=== PATIENT | female | born 1960 | race Two or more races ===

== ENCOUNTER 2018-04-11 21:47 | Emergency (ER) | payer OTHER ==
[2018-04-11 21:54] VITALS: BP 137/83; PULSE 81; RESP 16; TEMP 98.2; O2SAT 99
[2018-04-12 00:03] LABS: BASO % 0.6 % (0.0-2.0); EOS % 0.6 % (0.0-4.0); HEMOGLOBIN 11.8 g/dL (12.0-16.0); LYMPH # 1.2 K/uL (1.0-4.3); MEAN CELL VOLUME 86.8 fl (81.0-99.0); MEAN CORPUSCULAR HEMOGLOBIN 28.6 pg (27.0-31.0); MEAN CORPUSCULAR HGB CONC 32.9 g/dL (33.0-37.0); MEAN PLATELET VOLUME 8.2 fl (7.2-11.7); MONO # 0.4 K/uL (0.0-0.8); MONO % 5.1 % (0.0-10.0); NEUT # 5.3 K/uL (1.8-7.0); NEUT % 76.7 % (50.0-75.0); RBC 4.12 Mil/uL (3.80-5.20); RED CELL DISTRIBUTION WIDTH 13.4 % (11.5-14.5)
[2018-04-12 00:14] LABS: ALB/GLOB RATIO 1.5 (1.0-2.1); ALBUMIN 4.8 g/dL (3.5-5.0); ALT/SGPT 18 U/L (9-52); AST/SGOT 35 U/L (14-36); BLOOD UREA NITROGEN 11 mg/dl (7-17); CALCIUM 10.1 mg/dL (8.4-10.2); GFR NON-AFRICAN AMERICAN 42
[2018-04-12 00:24] LABS: BARBITURATES, UR NEGATIVE (NEGATIVE); BENZODIAZEPINES, UR NEGATIVE (NEGATIVE); OPIATES, UR NEGATIVE (NEGATIVE); PHENCYCLIDINE, UR NEGATIVE (NEGATIVE)
--- NOTE | 2018-04-12 00:25 | ED PDOC ---
HPI: Psych/Substance Abuse Time Seen by Provider: 04/11/18 21:57 Chief Complaint (Nursing): Psychiatric Evaluation Chief Complaint (Provider): Psychiatric Evaluation History Per: Patient, Family History/Exam Limitations: no limitations Associated Symptoms: denies: Suicidal Thoughts Additional Complaint(s): 57 y/o female was brought to the ED by her children for evaluation of psychosis. History was obtained from both patient and her family. Per family, patient has had a long history of psychosis. [place] last [place] and since then her psychiatric illness appears to have decompensated. Patient is no longer taking the same medications as with her [facility] psychiatrist. Family also reports they are concerned because patient is isolating herself more and in the past this was a sign of her psychosis getting worse. Today when family tried to visit her they had to force themselves into her home in order to check on the patient. They are also concerned that she overspending her allowance and they are not sure why. Per patient, she states she has had regular psychiatric care and was told that she was being over medicated. Patient reports she is now only diagnosed with mild anxiety and her prescriptions have changed to take only Celexa and is focusing more on general wellness. Patient states she was also started on medication for weight loss but however because it is not covered by insurance she has been spending money on that. Patient denies any homicidal or suicidal ideation as well as hallucinations. PMD [place] Past Medical History Reviewed: Historical Data, Nursing Documentation, Vital Signs Vital Signs: Last Vital Signs Temp 98.2 F 04/11/18 21:49 Pulse 81 04/11/18 21:49 Resp 16 04/11/18 21:49 BP 137/83 04/11/18 21:49 Pulse Ox 99 04/11/18 21:49 - Medical History PMH: No Chronic Diseases, Depression - Family History Family History: States: Unknown Family Hx - Social History Current smoker - smoking cessation education provided: No Alcohol: None Drugs: Denies - Allergies Allergies/Adverse Reactions: Allergies Allergy/AdvReac Type Severity Reaction Status Date / Time fluphenazine [From Prolixin] AdvReac FATIGUE Verified 04/11/18 21:54 Review of Systems ROS Statement: Except As Marked, All Systems Reviewed And Found Negative (as per HPI otherwise negative) Psych: Positive for: Anxiety, Psychosis. Negative for: Suicidal ideation Physical Exam - Reviewed Nursing Documentation Reviewed: Yes Vital Signs Reviewed: Yes - Physical Exam Appears: Positive for: No Acute Distress (but angry) Head Exam: Positive for: ATRAUMATIC, NORMOCEPHALIC Skin: Positive for: Warm, Dry Eye Exam: Positive for: EOMI, PERRL ENT: Negative for: Pharyngeal Erythema, Tonsillar Exudate Neck: Positive for: Painless ROM, Supple Cardiovascular/Chest: Positive for: Regular Rate, Rhythm. Negative for: Murmur Respiratory: Positive for: Normal Breath Sounds. Negative for: Respiratory Distress Gastrointestinal/Abdominal: Positive for: Soft. Negative for: Distended Back: Positive for: Normal Inspection. Negative for: Decreased ROM Extremity: Positive for: Normal ROM. Negative for: Deformity Lymphatic: Negative for: Adenopathy Neurologic/Psych: Positive for: Alert, Oriented (x3), Mood/Affect (angry). Negative for: Motor/Sensory Deficits - Laboratory Results Result Diagrams: 04/11/18 23:40 04/11/18 23:40 Lab Results: Total Bilirubin 0.7 mg/dl (0.2-1.3) 04/11/18 23:40 AST 35 U/L (14-36) 04/11/18 23:40 ALT 18 U/L (9-52) 04/11/18 23:40 Alkaline Phosphatase 86 U/L (38-126) 04/11/18 23:40 Total Protein 8.1 G/DL (6.3-8.2) 04/11/18 23:40 Albumin 4.8 g/dL (3.5-5.0) 04/11/18 23:40 Globulin 3.3 gm/dL (2.2-3.9) 04/11/18 23:40 Albumin/Globulin Ratio 1.5 (1.0-2.1) 04/11/18 23:40 - ECG O2 Sat by Pulse Oximetry: 99 (RA) Pulse Ox Interpretation: Normal Medical Decision Making Medical Decision Making: Time: 22:22 Initial Impression: anxiety Initial Plan: * Alcohol serum * CMP * Drug screen * Crisis evaluation * ED Urine * CBC w/ diff 00:20 Patient was evaluated by [employer] worker helper. She is stable for discharge with outpatient follow up. Labs reviewed and are unremarkable. Scribe Attestation: Documented by Kemal Mclean acting as a scribe for Marbella Castellanos MD. Provider Scribe Attestation: All medical record entries made by the Scribe were at my direction and personally dictated by me. I have reviewed the chart and agree that the record accurately reflects my personal performance of the history, physical exam, medical decision making, and the department course for this patient. I have also personally directed, reviewed, and agree with the discharge instructions and disposition. Disposition - Clinical Impression Clinical Impression: Unspecified psychosis - Patient ED Disposition Is Patient to be Admitted: No - Disposition Referrals: [facility] [Provider Group] Disposition: Routine/Home Disposition Time: 00:20 Condition: STABLE Additional Instructions: FOLLOW UP INSTRUCTED BY [employer]NAGEMENT ADVISER FOR FURTHER MANAGEMENT CONTINUE YOUR MEDICATIONS PRESCRIBED Instructions: Schizophrenia (DC)
== END 2018-04-12 00:25 | disposition home or self-care (01) ==
LOC: H.ER 21:47
DX: F29 Unspecified psychosis not due to a substance or known physiological condition (principal); Z00.8 Encounter for other general examination
CPT/HCPCS: 80053; 85025; 99283; G0480